=== PATIENT | female | born 1990 | race Caucasian/White ===

== ENCOUNTER 2017-07-14 20:44 | Inpatient (IN) | payer OTHER ==
[~2017-07-14] VITALS: Ht 167.6 cm; Wt 73.5 kg
[~2017-07-14 20:44] MED LIST: CIPROFLOXACIN500 MG PO; MIRENA1 EACH IY; NICORETTE4 M1 BUCCAL; PRENATAL 19 TA1 EAC1 PO
--- NOTE | 2017-07-15 00:15 | NUR ---
PT ROOM 115 AT THIS TIME. DROWSY, BUT RESPONDS TO NAME AND ANSWERS QUESTIONS APPROPRIATLY.
--- NOTE | 2017-07-15 01:00 | NUR ---
PT GIVEN TYLENOL 650MG PO WITH SIP OF WATER PER MD, AND TORDOL 30MG I.V. FOR TEMP 100.4, PT REPORTS SHE IS FREEZING. AFTER CALLING AND OBTAINING ORDERS. ALSO UPDATED MD OF TEMP AND PULSE 122 AT THIS TIME.
--- NOTE | 2017-07-15 02:18 | NUR ---
VITALS DONE AND CHARTED. NOTIFIED HER RN MANISH OF HIGH PULSE AND TEMP. BEDSIDE TABLE AND CALL LIGHT WITHIN REACH.
--- NOTE | 2017-07-15 03:10 | NUR ---
V/S IMPROVING AT THIS TIME. MONITORING CLOSLY FOR CONCERNS. DISCUSSED CONCERNS WITH MONE IN ED, WITH CHARGE NURSE LICHA AND KINGS IN CCU. CONCERNS OF PT TEMP AND LOW B/P WITH TACHYCARDIA.
--- NOTE | 2017-07-15 04:37 | NUR ---
PT RESTING QUIELTY IN BED EYES CLOSED RR EVEN AT 16 BPM. PT ALERT TO NAME. V/S TAKEN WILL NOTIFY MD OF LOW B/P AND UPDATE ON PT.
--- NOTE | 2017-07-15 04:51 | NUR ---
PT ADMITTED AT 0015 THIS AM. SHE ARRIVED TO ROOM 115 WITH TEMP OF 100.4. CALLED MD IN REGARDS TO ALL V/S AND PT CONDITION, NEW ORDERS GIVEN. SHE HAS NOT VOIDED SINCE ADMISSION WILLNOTIFY MD. PT REPORTS FEELING BETTER THIS AM, TEMP NOW 98.5 AFTER TORDOL AND TYLENOL ADMINSTERED. SHE HAS SLEPT WELL OVER SHIFT. FRIEND IN ROOM SLEEPING ON COUCH.
--- NOTE | 2017-07-15 05:00 | NUR ---
CALLED TO UPDATE ON PT, SHE HAS LOW B/P, TACHYCARDIC, NO URINE OUT AND DID NOT HAVE LACTIC OR BLOOD CULTURES DRAWN IN ED. ORDERS FOR 1L BOLUS LR TO BE ADMINISTERED OVER 2 HOURS, LABS TO BE DRAWN FOR BLOOD CULTURES AND LACTIC ACID THIS AM. NO OTHER ORDERS AT THIS TIME.
--- NOTE | 2017-07-15 06:02 | NUR ---
ROUNDED WITH IN PT ROOM. DISCUSSED PLAN OF CARE AND PLAN OF SURGERY LATER TODAY.
--- NOTE | 2017-07-15 06:40 | NUR ---
LAB IN DRAWING BLOOD CULTURES. PT STATED DR DEL VALLE WENT OVER THE CONSENT FOR SURGERY, CONSENTS TO BLOOD/PRODUCTS IF NECESSARY, SIGNED CONSENT FORM. PT EDUCATION GIVEN RELATED TO THE I/D PROCEDURE. FRIEND AT BEDSIDE.
--- NOTE | 2017-07-15 08:00 | NUR ---
TWO DIFFERENT ATTEMPTS MADE TO PLACE A VASQUEZ CATH IN PT, NOT SUCESSFUL DUE TO PT ANATOMY. THREE RN'S WORKING TOGETHER TO ATTEMPT TO PLACE VASQUEZ.
--- NOTE | 2017-07-15 08:25 | NUR ---
22 G IV STARTED IN LAC, PT TAMMY WELL. IV SITE IN RT AC INTACT, FLUIDS INFUSING EAISILY, NO REDENSS OR SWELLING NOTED.
--- NOTE | 2017-07-15 09:14 | NUR ---
urine sample sent to lab. macy wipe down complete, new linens and gown in place, pt able to void on bedside commode.
--- NOTE | 2017-07-15 09:43 | NUR ---
CALLED TO UPDATE ON PT ABILITY TO VOID AT BSC OF 300 ML. ONE ADDITIONAL L NS BOLUS ORDERED.
--- NOTE | 2017-07-15 10:24 | NUR ---
PT TROPONIN ELEVATED TO .019, MD NOTIFIED.
--- NOTE | 2017-07-15 10:47 | NUR ---
PT RESTING IN BED, APPEARS ASLEEP. PLACED SEDS ON PT. NO FOOD OR DRINK IN ROOM PT IS NPO, ALTHOUGH PT HAS BEEN COUNSELED SHE IS NOT TO HAVE FOOD OR DRINK PRIOR TO SURGERY. [phone] FRIEND IN DURING COUNSELING. 0900 CHECKED ON PT AND FOUND HALF A BREAKFAST SANDWICH IN UNDER PT BLANKETS IN BED. REINFORMED PT SHE IS NPO AND REASONS FOR NPO. PT STATES, "CAN I HAVE WATER?" EDUCATED PT NO WATER, ICE CHIPS, FOOD PRIOR TO SURGERY. WILL CONTINUE TO CLOSELY MONITOR PT. CALL LIGHT WITHIN REACH.
--- NOTE | 2017-07-15 12:20 | NUR ---
CALLED TO UPDATE ON PT STATUS, BP, HR, AND URINE OUTPUT. ORDER GIVEN FOR 1L BOLUS NS.
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
--- NOTE | 2017-07-15 14:01 | NUR ---
RED AREA OUTLINED WITH MARKER ON LEFT BUTTOCK.
--- NOTE | 2017-07-15 14:49 | NUR ---
PT ASLEEP, TOMAS SHEIKH SUGGESTED I LET HER SLEEP. WILL CALL BACK
--- NOTE | 2017-07-15 15:42 | NUR ---
CALLED TO UPDATE ON PT STATUS CONTINUIOUS ELEVATED HR, AND LOW URINE OUTPUT. ORDER GIVEN FOR MAG AND BMP LABS.
--- NOTE | 2017-07-15 15:50 | NUR ---
PT UP TO BEDSIDE COMMODE ABLE TO VOID 200 ML URINE.
--- NOTE | 2017-07-15 17:05 | NUR ---
PT LEFT THE CCU WITH THE OR NURSES AND STUDENT NURSE FOR SURGICAL PROCEDURE.
--- NOTE | 2017-07-15 18:30 | NUR ---
07/15/17 1830 Rita Fitzgerald OXYGEN SATURATION REMAINS 100% ON 6L VIA MASK. OXYGEN IS REMOVED @ THIS TIME.
--- NOTE | 2017-07-15 18:36 | CONS ---
[facility] [address], [place] [address] Signed DATE OF CONSULTATION: 07/15/2017 HISTORY OF PRESENT ILLNESS: Maxi is a 26-year-old female who is living with some roommates here in [place], [place]. 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 She has also been engaged in methamphetamines. For the last 3 days, she has developed pain and swelling on the left side of her anus, so she came to the emergency room for evaluation. On exam, she has a left perianal abscess, so I have asked to admit her as a general surgeon on-call. She was given Levaquin, Flagyl, IV fluids and pain control overnight. This morning, overall she seems to be feeling better. PAST MEDICAL HISTORY: Clavicular fracture. PAST SURGICAL HISTORY: Laparoscopic appendectomy. SOCIAL HISTORY: She smokes pack of cigarettes a day. She does not drink. She does use methamphetamines. 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 No job. She has no primary care provider. Her mother, Alpesh Lacy, is at [phone] in [place], [place]. She prefers [facility]. FAMILY HISTORY: Mom with diabetes. Dad has hypertension. REVIEW OF SYSTEMS: Maxi had 10 systems reviewed, seems to be very healthy otherwise. ALLERGIES: None. MEDICATIONS: None. PHYSICAL EXAMINATION: VITAL SIGNS: Her blood pressure is 95/56, heart rate 109, respiratory rate 16, and temperature is 98.2. She is 98% on room air. She is 5 feet 6 inches, at 70 kg. GENERAL: Maxi is a 26-year-old female who is lying in the right lateral decubitus position in her hospital bed. Her friend is in the room on the couch. We have Ms. Pierce with us. Maxi is alert, awake and interactive. Apparently, she looks and feels Electronically Signed By: JOSH DEL VALLE MD 07/15/17 1836 PATIENT NAME: MAXI LACY CONSULTATION DATE OF : 89 REPORT #: [id number] PHYSICIAN: JOSH DEL VALLE MD PCP: NO PRIMARY CARE PHYSICIAN REPORT IS CONFIDENTIAL AND NOT TO BE RELEASED WITHOUT AUTHORIZATION [facility] [address], [place] [address] Signed better this morning. LUNGS: Clear to auscultation bilaterally. HEART: Borderline tachycardic. ABDOMEN: Soft and nontender. She has some swelling left anterior with some erythema and tenderness. LABORATORY DATA: Her white blood cell count is 20,000, hemoglobin is 12 was 18, potassium 3.2, BUN 10, creatinine 0.5, AST 23, ALT 55, alkaline phosphatase 131, and albumin 3.6. Urinalysis shows some bacteria. Blood work also showed she was positive for methamphetamines and Ecstasy. Blood cultures are pending. ASSESSMENT AND PLAN: Maxi is a 26-year-old female who presents with a left perianal abscess. She has been admitted and given IV fluids, antibiotics and pain control. We will plan to take her to the OR later today for incision and drainage. I reviewed all this with Maxi in detail. She has expressed understanding and agrees about plan. MD DAMON Collier/MEGHANNL /[id number] cc: Josh Del Valle MD Copies: JOSH DEL VALLE MD ~ Electronically Signed By: JOSH DEL VALLE MD 07/15/17 1836 PATIENT NAME: ZEESHANMAXI WILL CONSULTATION DATE OF : 89 REPORT #: [id number] PHYSICIAN: JOSH DEL VALLE MD PCP: NO PRIMARY CARE PHYSICIAN REPORT IS CONFIDENTIAL AND NOT TO BE RELEASED WITHOUT AUTHORIZATION
--- NOTE | 2017-07-15 19:00 | NUR ---
RECEIVED REPORT AT 1900. PT JUST ARRIVED FROM PACU WITH LOW SBP'S IN THE MID 80'S. DAY RN CALLED MD SIMMS AND RECEIVED AN ORDER FOR LEVOPHED IV. A NEW IV SITE WILL BE STARTED. PT IS NOT REALLY RESPONSIVE TO VERBAL COMMANDS. PT IS VERY DRWOSY.
--- NOTE | 2017-07-15 19:18 | NUR ---
PT BACK TO RM FROM OR. RECEIVED FULL REPORT FROM ELLIE. BEDSIDE REPORT GIVEN TO [facility] NURSES.
--- NOTE | 2017-07-15 20:20 | NUR ---
NEW IV SITE ESTABLISHED. LEVOPHED INITIALLY STARTED AT 4MCG/MIN. PRESSURES ARE IMPROVING. ALL LOBES ARE DIMINISHED, PT HAS GENERALIZED EDEMA. CAP REFILL ON BOTH HANDS AND TOES IS <3 SEC. URINE OUTPUT FROM [id number] WAS 60ML. RADIAL AND PEDIS PULSES ARE +2 SO FAR. HANDS ARE COOL TO TOUCH.
--- NOTE | 2017-07-15 21:00 | NUR ---
LEVOPHED DRIP STOPPED AT 2039 DUE TO MEETING EMAR CRITERIA. SBP'S NOW >100. PT OPENED HER EYES TO VERBAL COMMAND BUT STATED THAT SHE IS TIRED. RADIAL AND PEDIS PULSES ARE +2, HANDS ARE STILL COOL TO TOUCH. URINE OUTPUT FROM [id number] WAS 100ML. HR IS SINUS TACHY 100-118. PT IS STILL ON 2L O2 NC.
--- NOTE | 2017-07-15 23:05 | NUR ---
PT IS STILL VERY SLEEPY, TEMP AT THIS TIME IS 100.3. URINE OUTPUT IS ADEQUATE, BP'S ARE SOFT BUT SBP HAS BEEN STAYING >90. MAP AT THIS TIME IS 64. TACHY STILL AT 100-110. PT ON 2L O2 NC. GENERALIZED EDEMA IS UNCHANGED SO FAR.
--- NOTE | 2017-07-15 23:33 | NUR ---
PT FOR THE PAST 15MIN HAS BEEN AWAKE. ABD PAD WAS REPLACED DUE TO DRAINAGE. PT IS NOW EATING JELLO AND IS ON HER PHONE. LAST BP AT 2330 WAS 88/57 (64), LEVOPHET AT 4MCG/MIN WAS STARTED AGAIN. PT ALSO HAD SOME WATER TO DRINK.
--- NOTE | 2017-07-16 00:07 | NUR ---
LEVOPHET IS GOING AT 3MCG/MIN AT THIS TIME. URINE OUTPUT IS STILL ADEQUATE, BP'S ARE IMPROVING AGAIN. PT LOST IV SITE IN RIGHT HAND. ALL LOBES ARE CLEAR WITH DIMINISHED BASES, RADIAL AND PEDIS PULSES ARE +1, HANDS AND FEET ARE WARM TO TOUCH. PT DENIES NUMBNESS AND TINGLING. HR AT 100-110, ABD SOUND ARE STILL HPYOACTIVE. ABD IS SOFT AND NON-TENDER TO TOUCH. PT TRIED TO GET VISITORS TONIGHT. I TOLD HER NO VISITOR TONIGHT. PT AT TIMES IS AWAKE AND AT TIMES FALLS BACK ASLEEP. NO NEW CONCERNS AT THIS TIME.
--- NOTE | 2017-07-16 01:49 | NUR ---
AT 0103 TEMP WAS 102.9, IV TORADOL 30MG WAS GIVEN. AT 0145 TEMP WAS 100.2. I DID NOT CALL MD SIMMS BECAUSE I WANTED TO SEE HOW MUCH AND IF HER TEMP WOULD DROP WITH TORADOL. HANDS AND FEET ARE WARM TO TOUCH. HR IS 110 OR SO. RR 23. O2 SATS 100% ON 2L O2 NC. PT IS SLEEPY AGAIN AND NOT EASY TO AROUSE.
--- NOTE | 2017-07-16 03:05 | NUR ---
VANCOMYCIN WAS STARTED AT 0300. PT REMAINS AT 4MCG/MIN OF LEVOPHET. RADIAL AND PEDIS PULSES ARE +2 AT THIS TIME WITH HANDS AND FEET WARM TO TOUCH. BP'S ARE WDL AT THIS TIME. PT IS SLEEPING AND STILL HARD TO AROUSE. THIS MAY BE DUE TO THE METH LEAVING HER SYSTEM. TEMP AT THIS TIME IS 99.1
--- NOTE | 2017-07-16 03:35 | NUR ---
AT O330 OXYGEN WAS TITRATED TO 1L NC. AT THIS TIME PT IS ON RA. OS SATS AT 96%. RR 15.
--- NOTE | 2017-07-16 05:00 | NUR ---
PT IS STILL VERY MUCH ASLEEP. LEVOPHET IS AT 3MCG/MIN, SBP SO FAR >100. HR IS 90-110. PT IS STILL ON RA AND O2 SATS ARE >92%. URINE OUTPUT IS ADEQUATE. HANDS AND FEET ARE WARM TO TOUCH WITH RADIAL AND PEDIS PULSES +2. NO NEW CONCERNS AT THIS TIME.
--- NOTE | 2017-07-16 06:15 | OR ---
[facility] [address], [place] [address] Signed DATE OF OPERATION: 07/15/2017 SURGEON: Josh Del Valle MD PREOPERATIVE DIAGNOSIS: Left perirectal abscess. POSTOPERATIVE DIAGNOSIS: Left perirectal abscess. PROCEDURES: Incision and drainage, left perirectal abscess. ESTIMATED BLOOD LOSS: None. INDICATIONS: Maxi is a 26-year-old female, who apparently lives alone with some roommates. 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 She came into our emergency room with at least 3-day history of redness and swelling on the left buttock area just to the side of the anus. She tested positive for methamphetamines and Ecstasy. I had been asked to admit her as a general surgeon on-call. She also had 4+ bacteria in the urine. She was placed on Levaquin and Flagyl and hydrated overnight. I had met her earlier this morning and we had planned on doing her surgery. Later that morning, when I left the room after the nurse talked to her about n.p.o. status, she ate most of a sandwich, so we had to wait until later today. In the meantime, we did have our Internal Medicine Service see her and they decided because of her tachycardia and her hypotension to move her down to the ICU. It is hard to know if that was all sepsis or there was some component of methamphetamine withdrawal. Consequently, she did get some Ativan today as well along with IV fluids for urine output. I had explained to Maxi and her friend the concept of a perirectal abscess and the need to incise and drain that area and evacuate the pus and allowed to heal in secondarily. We also discussed the concept of a [id number] at least 50% of the time. They had expressed understanding wished to proceed. PROCEDURE NOTE: Maxi was taken into our operating room and placed in the prone monico-knife position with appropriate padding and monitoring. She had a Skaggs catheter in place with return of clear yellow urine. She was already on preoperative antibiotics along with subcutaneous heparin. SCDs were utilized. After this, she was prepped and draped in Electronically Signed By: JOSH DEL VALLE MD 07/16/17 0615 PATIENT NAME: MAXI BYERS OPERATIVE REPORT DATE OF : 89 REPORT #: [id number] PHYSICIAN: JOSH DEL VALLE MD PCP: NO PRIMARY CARE PHYSICIAN REPORT IS CONFIDENTIAL AND NOT TO BE RELEASED WITHOUT AUTHORIZATION [facility] [address], [place] [address] Signed the usual sterile fashion. With digital exam, I could feel the abscess traveling along the left side of the rectum and somewhat posteriorly. We used a half-nicholas retractor and we had pushed on the area and we could not see any fistula tract or pus coming in the posterior or anterior midline. After this, we found the area of what we felt was maximal fluctuance at about the 7 o'clock position next to the anus had being the left lateral somewhat anterior position. Initial stab wound was made with the cautery and copious amounts of pus was evacuated. Cultures were taken. After this, we converted to a cruciate incision and we spent quite a few minutes irrigating and suctioned out the wound. The wound traveled up along the rectum and somewhat posteriorly over to the midline, but not across the midline. The wound was probably 6-8 inches deep posteriorly, 3-4 inches laterally and anteriorly. All the loculations were broken up and all the debris in the loose fat was evacuated with the help of warm antibiotic saline solution. Local anesthetic was copiously injected circumferentially in the skin and subcutaneous tissues around the wound. We then packed the wound with 4-inch Kerlix gauze roll soaked in Dakin's solution. This was covered with a dry ABD and underwear. After this, Maxi was rotated into the supine position onto her hospital bed weaned from her anesthesia, extubated in the OR, and taken to recovery room in stable condition. Josh Del Valle MD ALB/MODL /[id number] cc: Josh Del Valle MD Copies: JOSH DEL VALLE MD ~ Electronically Signed By: JOSH DEL VALLE MD 07/16/17 0615 PATIENT NAME: MAXI BYERS OPERATIVE REPORT DATE OF : 89 REPORT #: [id number] PHYSICIAN: JOSH DEL VALLE MD PCP: NO PRIMARY CARE PHYSICIAN REPORT IS CONFIDENTIAL AND NOT TO BE RELEASED WITHOUT AUTHORIZATION
--- NOTE | 2017-07-16 06:24 | NUR ---
PT ARRIVED ON UNIT AT 1900 WITH LOW BP'S. LEVOPHET ORDER WAS GIVEN BY MD SIMMS. AT 2039 LEVOPHET WAS D/C DUE TO GOOD PRESSURES AND MAP. AT AROUND 0100 PT SPIKED A FEVER OF 102.9, PRN TORADOL 30MG IV WAS GIVEN. MD SIMMS WAS NOT CALLED BECAUSE I WANTED TO SEE WHAT THE TORADOL WOULD DO. HER TEMP KEPT DECLINING UNTIL SHE WAS AFEBRILE. AROUND THE SAME TIME PT BECAME FEBRILE, HER BP'S WENT <90 SYSTOLICALLY AND PT HAD TO BE PUT BACK ON LEVOPHET AND HAS REMAINED ON IT SINCE. AT THIS TIME IT IS RUNNING AT 2MCG/MIN AT THIS TIME. URINE OUTPUT HAS BEEN ADEQUATE ALL SHIFT. AT 0600 IT WAS 75ML FOR 1 HOUR AND IT HAS BECOME MORE DARKER IN COLOR. THIS WAS THE LOWEST HOURLY OUTPUT THIS SHIFT. ABD PAD HAD TO BE REINFORCED ONE THIS SHIFT. PT HAD A MODERATE AMOUNT OF SEROUSANG. DRAINAGE. PT IS DRY AT THIS TIME. PT HAS GENERALIZED EDEMA AT THIS TIME APPROACHING +2 BUT NON-PITTING. AT START OF SHIFT IT WAS +1. RADIAL AND PEDIS PULSES ARE AT TIMES +1 AND +2 AT OTHER TIMES. HANDS AND FEET ARE WARM TO TOUCH FOR THE MOST PART. AT TIMES THEY WERE COOL. CAP REFILL HOWEVER HAS ALWAYS BEEN <3 SEC. ALL SHIFT. ABD SOUNDS AT THIS TIME ARE PRESENT. PT IS TOLERATING LIQUID DIET WELL. PT HAS REMAINED DROWSY/SLEEPY FOR THE MOST PART OF THIS SHIFT. PT IS NOT ABLE TO HOLD A CONVERSATION OR ANSWER QUESTIONS FOR THE MOST PART. PT MAY NEED PICC LINE SINCE HER VENOUS ACCESS IS LIMITED. ONE IV SITE WAS LOST THIS SHIFT.
--- NOTE | 2017-07-16 07:20 | EKG ---
[facility] [address] [facility] [place], [place] [address] Signed Sinus tachycardia Otherwise normal ECG When compared with ECG of 04-JUN-2016 09:18, No significant change was found Confirmed by RAYSA DIETZ MD ([id number]) on 07/16/2017 7:19:45 AM Electronically Signed By: RAYSA DIETZ MD 07/16/17 0720 PATIENT NAME: ZEESHANCLAYTON Electrocardiogram DATE OF : 89 PHYSICIAN: RAYSA DIETZ MD REPORT #: [id number] REPORT IS CONFIDENTIAL AND NOT TO BE RELEASED WITHOUT AUTHORIZATION
--- NOTE | 2017-07-16 07:33 | NUR ---
levophed drip off at this time.
--- NOTE | 2017-07-16 08:00 | NUR ---
PT SLEEPING. WILL CHECK LATER.
--- NOTE | 2017-07-16 10:03 | NUR ---
PT GIVEN FULL BED BATH, LINEN CHANGE, AND GOWN CHANGED. VASQUEZ CATH CARE DONE. DRESSING ON LEFT BUTTOCK CHANGED, OLD GAUZ PACKING PULLED OUT, NEW KERLEX GAUZE SOAKED IN FULL STRENGTH DAKINS SOLUTION PACKED INTO WOUND, COVERED WITH ABD PAD, CLEAN UNDERWEAR PLACED. PT ABLE TO ROLL FROM SIDE TO SIDE TO ASSIST WITH BED CHANGE. PT TEARFUL DURING DRESSING CHANGE. WOUND APPEARS WNL.
--- NOTE | 2017-07-16 11:15 | NUR ---
PT SLEEPING. SPOKE WITH NURSING STAFF. THEY STATE PATIENT IS SLEEPING MOSTLY. DOESN'T SPEAK MUCH WHEN AWAKE. STATE SHE LIVES IN APARTMENT WITH FRIENDS. HAS NO CONTACT WITH FAMILY AT THIS TIME. SHE IS UNEMPLOYED. THEY WILL LET CASE MANAGEMENT KNOW WHEN SHE IS MORE ALERT FOR ASSESSMENT.
--- NOTE | 2017-07-16 13:16 | NUR ---
PT SEEMS TO BE VERY DROWSY. WAS TRYING TO TALK ON PHONE, AND FADED IN AND OUT I ENTERED. PT STATED SHE IS THIRSTY, AND WOULD REALLY LIKE TO SLEEP. EXTENDED A BLESSING, ASKED IF SHE COULD HAVE VISITORS YET. I CHECKED WITH TOMAS BAILEY, SHE STATED SHE WILL CHECK. PT'S PREVIOUS VISITORS HAVE NOT COMPLIED WITH UNIT RULES, CREATING ISSUES. WILL FOLLOW NEEDED
--- NOTE | 2017-07-16 14:20 | NUR ---
PT RESTING IN BED. PROMPTED PT TO AMBULATE AND USE RESTROOM TO BRUSH TEETH. PT TO CHAIR AND STATES SHE FEELS "NAUSEOUS". ALSO ASKS "WHY CANT I HAVE MY FRIENDS COME VISIT?" KORI MARIN EXPLAINED TO PT "DUE TO THE FACT THAT YOU TESTED POSITIVE FOR METHAMPHETAMINE, AMPHETAMINES, AND ECSTACY; THEREFORE WE ARE CONCERNED FOR YOUR SAFETY." PT TEARFUL STATES "I CANT BE HERE ALL ALONE. MY FRIENDS ARE MY FAMILY, MY FAMILY DOESNT CARE ABOUT ME." REITERATED TO PT IT WAS THE DR'S CHOICE TO HAVE VISITORS RESTRICTED. PT ASKED TO SPEAK WITH
--- NOTE | 2017-07-16 14:34 | NUR ---
IN ROOM TO DISCUSS PLAN OF CARE WITH PT. PT DID NOT DISCUSS TOPIC OF HAVING VISITIORS IN HER ROOM WITH .
--- NOTE | 2017-07-16 15:58 | NUR ---
pt is reclining in chair at this time, vitals wnl. pt has been able to eat most of her lunch, elsa reg diet well. pt elsa room air well.
--- NOTE | 2017-07-16 18:25 | NUR ---
PT RESTING IN CHAIR, AMBULATED BACK TO BED. PT IN TEARS ASKING AGAIN IF SHE CAN HAVE VISITORS. WHEN TOLD "NOT AT THIS TIME" PT BECAME MORE UPSET. PT CONTINUED TO ARGUE, NURSE REITERATED IT IS NOT AN OPTION AT THIS TIME AND OFFERED TO CALL PARENTS, BUT PT DECLINED INSTEAD REQUESTING VANNESA RN TO COME SPEAK WITH HER. VANNESA CAME INTO RM AND WAS ABLE TO COMMUNICATE THE SAME MESSAGE. AFTER DISCUSSION PT DECIDED TO HAVE KORI CONTACT HER FATHER.
--- NOTE | 2017-07-16 19:01 | NUR ---
THIS RN HAS REVIEWED OR CHARTED WITH ALL STUDENT NURSE CHARTING FOR THIS SHIFT.
--- NOTE | 2017-07-16 19:30 | NUR ---
PT IN BED RESTING WITH EYES CLOSED, AWAKENS BRIEFLY FOR IV PUMP ALARM AND DENIES NEEDS THEN BACK TO SLEEP.
--- NOTE | 2017-07-16 20:30 | NUR ---
FATHER ALIN IN TO SEE PT AND SIT AT BEDSIDE. NO REQUESTS AT THIS TIME.
--- NOTE | 2017-07-16 21:00 | NUR ---
PT C/O NAUSEA AFTER WAKING UP. 8MG IV ZOFRAN GIVEN. PT VERY SLEEPY, TALKING TO THIS RN AND FATHER WITH EYES CLOSED.
--- NOTE | 2017-07-16 22:30 | NUR ---
FATHER LEAVING FOR THE NIGHT, PT IS BACK TO SLEEP.
--- NOTE | 2017-07-17 00:19 | NUR ---
DRESSING CHANGE DONE, OLD PACKING REMOVED SATURATED WITH SMALL AMT PURULENT AND SEROSANG DISCHARGE, NEW PACKING PLACED GAUZE SATURATED IN DAKINS SOLUTION, PT WAS TEARFUL THROUGH DRESSING CHANGE, ALTHOUGH PREMEDICATED WITH DILAUDID AND NORCO. URINE OUTPUT FOR THE LAST HOUR HAS DROPPED TO 36ML, WILL CONTINUE TO MONITOR. LAST BP MAP 73. PT QUICKLY BACK TO SLEEP AFTER DRESSING CHANGE DONE.
--- NOTE | 2017-07-17 02:22 | NUR ---
PT REMAINS ASLEEP. O2 ON. RESPIRATORY RATE EVEN AND UNLABORED. NO S/S OF DISTRESS.
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
--- NOTE | 2017-07-17 04:07 | NUR ---
PT WOKE UP VOMITING, HAD 100ML EMESIS. 12.5MG IV PHENERGAN GIVEN AND PT QUICKLY BACK TO SLEEP.
--- NOTE | 2017-07-17 06:09 | NUR ---
LAB IN TO DRAW BLOOD. UNSUCCESSFUL. WARMING PT ARMS WITH BLANKETS TO RETURN LATER. ASKED PT IF SHE WOULD LIKE ANY PAIN MEDICATION, PO. PT REFUSED AT THIS TIME. HAS PRIMARILY BEEN SLEEPING.
--- NOTE | 2017-07-17 06:33 | NUR ---
PT O2 OFF. PLACED BACK ON. SPO2 87% ON RA. INCREASED TO 95% ON 2L NC.
--- NOTE | 2017-07-17 08:40 | NUR ---
TAKING ONLY FLUIDS, REFUSING FUTHER BREAKFAST.
--- NOTE | 2017-07-17 09:00 | NUR ---
C/O SARAVIA 12/29. NORCO 2 GIVEN FOR PAIN.
--- NOTE | 2017-07-17 09:30 | NUR ---
DRESSING TO LEFT BUTTOCKS REDRESSED. DR. ORTIZ AND DR. DEL VALLE HERE. DRESSING REAPPLIED PER ORDERS. PATIENT TOLERATED FAIR.
--- NOTE | 2017-07-17 11:41 | NUR ---
REMAINS DROWSY. NEEDS MUCH ENC TO BE INVOLVED IN HEALTH CARE. ON RA SAT 78. O2 AT 2 LITERS REAPPLIED. WILL ONLY SHAKE HEAD IN RESPONSE TO QUESTIONS, EYES SHUT. PEDRO GARNER.
--- NOTE | 2017-07-17 12:40 | NUR ---
C/O NAUSEA AFTER TAKING FEW BITES OF FRUIT/JELLO. ZOFRAN 8 MG IV GIVEN.
--- NOTE | 2017-07-17 14:00 | NUR ---
TO SHOWER IN ROOM 118. IS STABLE ON FEET.
--- NOTE | 2017-07-17 14:20 | NUR ---
RETURN TO ROOM, WISHES TO GO BACK TO BED STATES SHE CAN'T SIT ON LEFT BUTTOCKS. HAD 50 ML EMESIS OF RED JELLO. HEMATES NEG.
--- NOTE | 2017-07-17 16:30 | NUR ---
dr. summers updated on patient STATUS. WILL TRANSFER TO MEDICAL FLOOR THIS AFTERNOON.
--- NOTE | 2017-07-17 16:45 | NUR ---
REPORT TM MED-SURG.
--- NOTE | 2017-07-17 17:15 | NUR ---
LASIX 20 MG IV AND KCL 20 MEQ PO GIVEN.
--- NOTE | 2017-07-17 17:20 | NUR ---
TO MEDICAL FLOOR VIA BED. REMAINS ON O2 AT 1 LITHE. ENC THROUGH THE DAY TO DEEP BREATH.
--- NOTE | 2017-07-17 18:02 | NUR ---
PT RECEIVED FROM CCU. PT ON 1L NC, LUNG SOUNDS CLEAR. PT SLEEPY, AROUSABLE TO VOICE. IV FLUIDS INFUSING AT 50 ML/HR. BOWEL TONES ACTIVE, DENIES NAUSEA, POOR APPETITE. PT COMPLAINT OF HEADAHCE, GIVEN IV KETORALAC FOR PAIN. IV TO RIGHT AC INFILTRATED, LEFT AC PATENT NOW INFUSING. PT ASSISTED TO BATHROOM X2, VOIDING LARGE AMOUNTS OF URINE. BED ALARM IN PLACE.
--- NOTE | 2017-07-17 19:20 | NUR ---
BEDSIDE REPORT RECEIVED FROM JSOE. ASSUMING PATIENT CARE AT THIS TIME. PATIENT RESTING IN BED, APPEARED TO BE SLEEPING AT TIME OF REPORT. SHOOK HEAD TO ANSWER QUESTION. IV SITE PATENT AND FLUID INFUSING WELL. WILL CONTINUE TO MONITOR.
--- NOTE | 2017-07-17 21:35 | NUR ---
PATIENT RESTING IN BED, DENIES PAIN AT THIS TIME. PATIENT APPEARS TO BE SLEEPY , BUT ANSWERED ALL QUESTIONS APPROPRIATELY. IV SITE PATENT AND FLUID INFUSING WELL.DRESSING ON LEFT BUTTUCKS IN PLACE. POSITIVE BOWEL TONES. LUNGS ARE CLEAR. EVENING MED GIVEN AND ABX STARTED. PATIENT RESTING, NO OTHER COMPLAINT AT THIS TIME.
--- NOTE | 2017-07-17 23:00 | NUR ---
DRESSING TO LEFT LOWER BUTTOCKS DONE BY PRIMARY RN. LAC IV SITE VERY POSITIONAL. PT DECLINED SEVERAL TIMES TO HAVE IV RESTARTED. "JUST LET ME SLEEP", "I DO NOT WANT TO BE POKED AGAIN", PT INSTRUCTED BY PRIMARY RN ALEXIA MARIN OF [facility] WHY WE NEEDED TO HAVE A SECOND/ANOTHER IV SITE. CONTINUES TO DECLINE . WILL ASK PT AGAIN LATER ON THIS SHIFT ABOUT RESTARTING ANOTHER IV LINE.
--- NOTE | 2017-07-18 00:19 | NUR ---
PATIENT RESTING IN BED AT THIS TIME, APPEARS TO BE SLEEPING. NO APPARENT DISTRESS NOTED. RR EVEN/UNLABORED. DRESSING ON LEFT BUTTUCK CHANGED EARLIER. PATIENT REPORTED 10/10 PAIN. OFFERED PATIENT KERI PATIENT REFUSED DUE TO NAUSEA, ALSO REFUSED ANTIEMETIC FOR NAUSEA. PATIENT REQUESTED TO BE LEFT ALONE. IV ABX STARTED. COOL COMPRESS TO FOREHEAD.
--- NOTE | 2017-07-18 00:50 | NUR ---
IN TO ROOM TO CHECK ON PATIENT. PATIENT REQUESTED WARM BLANKET. WARM BLANKET PROVIDED. NO OTHER REQUEST
--- NOTE | 2017-07-18 02:50 | NUR ---
UP TO BRP WITH 1 PA, VOIDED DARK YELLOW URINE, BACK TO BED, TOLERATED WELL. EXTRA PILLOW GIVEN ON REQUEST.
--- NOTE | 2017-07-18 03:30 | NUR ---
PATIENT WAS UP TO BATHROOM WITH THE HELP OF THE CHARGE NURSE. BACK TO BED. SECOND ASSESSMENT DONE. PATIENT REPORTES SORENESS ON THE LEFT BUTTOCK AREA. WARM BLANKET AND EXTRA PILLOW GIVEN PER PATIENT REQUEST. ALLOW PATIENT TO REST.
--- NOTE | 2017-07-18 04:54 | NUR ---
PATIENT RESTING IN BED, NO APPARENT DISTRESS. ALLOWED PATIENT TO REST
--- NOTE | 2017-07-18 05:56 | NUR ---
PATIENT AN UNEVENTFUL NIGHT, SLEPT MOST OF THE SHIFT. DRESSING ON THE LEFT BUTTUCK WAS CHANGED. PATIENT REFUSED TO PAIN MED LAST NIGHT AFTER DRESSING CHANGE. IV SITE PATENT , ABX INFUSING.FLAT AFFECT. HAS BEEN UP TO BATHROOM A COUPLE OF TIME DURING THE SHIFT. ARMS AND HANDS ARE SWELLEN. PATIENT REFUSED NEW IV INSERTION.
--- NOTE | 2017-07-18 06:06 | NUR ---
IN TO PATIENT ROOM WITH CHARGE NURSE FOR MORNING VITALS. PATIENT REPORTS BEING TIRED. IV SITE PATENT AND IV ABX STARTED. DENIES NAUSEA AT THIS TIME.
--- NOTE | 2017-07-18 07:00 | NUR ---
BEDSIDE HANDOFF REPORT RECEIVED FROM FIBERGLASS TUBE MOLDER RN. PT SKEEPING, LEFT UNDISTURBED.
--- NOTE | 2017-07-18 08:30 | NUR ---
PT RESTING IN BED. IV VANCO INFUSION COMPLETED. IV FLAGYL INFUSING. PT DROWSY, UNMOTIVATED, REQUIRES FREQUENT REQUEST TO WAKE UP FOR ASSESSMENT, WAKES EASILY FOR JELLO OR PERSONAL REQUESTS. PT ON ROOM AIR, LUNG SOUNDS CLEAR. BOWEL TONES ACTIVE, POOR APPETITE, ENCOURAGED TO ORDER BREAKFAST. EDEMA IMPROVING, CMS INTACT. DISCUSSED PLAN OF CARE FOR THE DAY. PT PROVIDED PAIN MEDICATION, PROPHYLAXIS FOR DRESSING CHANGE. PT DENIES OTHER NEEDS AT THIS TIME.
--- NOTE | 2017-07-18 09:55 | NUR ---
PT SALINE LOCKED. GAS APPLIANCE MECHANIC ASSISTING PT WITH SHOWER.
--- NOTE | 2017-07-18 10:30 | NUR ---
PT COMPLETED WITH SHOWER. DRESSING CHANGE COMPLETED TO LEFT BUTTOCK WOUND, WASHED WITH SOAP WATER, PACKED WITH GAUZE ROLL WITH DAKINS SOLUTION, SECURED WITH ABD AND TAPE, UNDERWEAR IN PLACE. PT TOLERATED WITH SOME PAIN. IV CEFEPIME INFUSING. PT GIVEN PO SEPTRA. PT RESTING IN BED. PT DENIES OTHER NEEDS AT THIS TIME.
--- NOTE | 2017-07-18 14:20 | NUR ---
PT RESTING IN BED. PT ON ROOM AIR, O2 SATS 91-92%, LUNG SOUNDS CLEAR. PT CONTINUES TO BE DROWSY, EASILY AROUSABLE. IV INFUSING ABX. VSS. EDEMA IMPROVING. NO ACUTE CHANGES. PT DENIES OTHER NEEDS AT THIS TIME.
--- NOTE | 2017-07-18 18:00 | NUR ---
IV VANCO DISCONTINUED, STARTED ON PO SEPTRA. PT ON ROOM AIR, LUNG SOUNDS CLEAR. IV TO LEFT AC PATENT, IV CEFEPIME AND FLAGYL. DRESSING CHANGE COMPLETED THIS AM AFTER SHOWER. PT CONTINUES TO BE DROWSY, REQUIRES FREQUENT EDEUCATION ON MOBILITY AND MOTIVATION. POOR APPETITE. VOIDING QS.
--- NOTE | 2017-07-18 18:27 | NUR ---
AFTER VITALS PATIENT GOT UP AND WENT INTO THE BATHROOM. NOW IS SITTING UP IN CHAIR.
--- NOTE | 2017-07-18 21:20 | NUR ---
2038 - medicated with one norco c/o 07/29 left buttovks pain. pt in bed, up to brp with one assist, voided, back to bed. IV s/s site LAC intact, patent. Dressing left buttocks intact. will change as per orders. area tender. Pt encouraged to walk up in room or get up in chair. Stated understanding, more awake. Continues on Contact Isolation. Pt states she does not know if she has anybody available to do her buttocks dressing changes when she gets dc. Will discuss with CM in am
--- NOTE | 2017-07-18 22:20 | NUR ---
Medicated with 2nd dose of [place] prior to Left buttock dressing change. Cooperative with dressing changes, area no odor, scant amount of clear drainage present on old dressing. Dressing changed as per orders.
--- NOTE | 2017-07-19 00:29 | NUR ---
Resting, awkens easily, up to brp with 1 sba, no c/o pain, Jelloo given at her requests
--- NOTE | 2017-07-19 04:25 | NUR ---
Resting, eyes closed, dressing left buttocks in place, no c/o pain or requests
--- NOTE | 2017-07-19 06:08 | NUR ---
awake, lab in room drawing blood. cooperative with procedure. sl. no c/o adverse reaction to abx. Pt instructed to increase fluid intake, has had poor appetite. no c/o feelings nauseated last night this shift. Was medicated per pain left buttocks, dressing to left buttocks done, decrease serous drainage, no odor present. decreased edema of right arm/hand and right foot/let+1, non pitting, Left hand-leg trace of edema, improving.
--- NOTE | 2017-07-19 06:55 | NUR ---
DR DEL VALLE IN ROOM TO SEE PT. DRESSING LEFT BUTTOCKS DC'D BY DR DEL VALLE. PT NO C/O PAIN AT THIS TIME
--- NOTE | 2017-07-19 08:36 | NUR ---
SET UP FOR BRK. CLEANED ROOM. WILL CHECK BACK ON LATER
[2017-07-19] MEDS ORDERED: FLAGYL500 MG PO (08:51)
[2017-07-19] MEDS ORDERED: BACTRIM DS TAB1 EACH PO (08:51)
[2017-07-19] MEDS ORDERED: NORCO 5-325 TA1 EACH PO (08:52)
--- NOTE | 2017-07-19 09:21 | NUR ---
GAVE DISCHARGE INSTRUCTIONS TO PT. PT VERBALIZED UNDERSTANDING. QUESTIONS ASKED AND ANSWERED. GAVE PT ABD PADS, CARLOS PADS, AND 4X4 GAUZE FOR HOME DRESSINGS. WOUND TO LEFT INNER BUTTOCK OPEN TO AIR, PLACED 4X4 GAUZE OVER WOUND. ONLY SMALL AMOUNT OF SEROUS DRAINAGE NOTED TO WOUND.
--- NOTE | 2017-07-19 10:14 | NUR ---
RN IN ROOM. VITALS AND I&Os DONE. CALL LIGHT WITHIN REACH. NO OTHER NEEDS AT THIS TIME.
--- NOTE | 2017-07-19 10:18 | NUR ---
JAMA AND I AND O DONE
--- NOTE | 2017-07-19 12:50 | NUR ---
PATIENT RESTING IN BED AND IS WAITING FOR FAMILY MEMBERS TO ARRIVE TO DISCHARGE.
--- NOTE | 2017-07-20 08:08 | DS ---
[facility] [address] [place], [place] [address] Signed ADMISSION DATE: 07/14/2017 DISCHARGE DATE: 07/19/2017 FINAL DIAGNOSES: 1. Left perirectal abscess with methicillin-resistant Staphylococcus aureus. 2. Urinary tract infection with Escherichia coli. 3. Methamphetamine abuse. PROCEDURE: Incision and drainage of left perirectal abscess. HISTORY OF PRESENT ILLNESS: Maxi is a 26-year-old female, who over 3 days, developed redness and swelling to the left of her anus. 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 In the ER, she proved positive for methamphetamines and ecstasy. Her mother apparently lives at [place], [place], which is an hour away. Her father lives locally and apparently does help her from time to time. In the emergency room, her blood pressures were run in a little low. She was a little tachycardic with the left perianal swelling and erythema and tenderness. White count was elevated at 22,000 and her urine showed +4 bacteria with positive meth and ecstasy on her tox screen. I have been asked to admit her as a general surgeon on-call. HOSPITAL COURSE: Maxi was admitted as above and started on Levaquin and Flagyl. We took her to the operating room later that day for incision and drainage of her left perirectal abscess with cultures that wound traveled along the rectum and then was somewhat posteriorly and towards the midline. We checked around the posterior midline of the anal canal and the anterior midline and saw no evidence of any fistula tract. That wound was quite deep 6-8 inches. We had packed it daily with Dakin's soaked gauze and kept her on initially vancomycin, Levaquin, and Flagyl. When the cultures came back with MRSA and E. coli, we changed her over to Bactrim along with cefepime and Flagyl. She has continued to improve each day and her white count has come down each day. She seemed to sleep quite a bit here in the hospital and we kept the visitors out of her room. She seemed to have poor insight into her condition, although yesterday she seemed to increase her activity. She has been eating well. She has had a couple of bowel movements and she for the 1st time made eye contact this morning and was cooperative with our exam. Dilaudid seemed to give her headaches, so we switched over to morphine that seemed to work well and she has also done well with hydrocodone. Her white count is down to 12.8 and the labs this morning are still pending as she is a little anemic with a hemoglobin of 10.3. Otherwise, she has been doing fine. Electronically Signed By: JOSH SÁNCHEZ MD 07/20/17 0808 PATIENT NAME: MAXI BYERS DISCHARGE SUMMARY DATE OF : [birth year] REPORT #: [id number] PHYSICIAN: JOSH SÁNCHEZ MD PCP: NO PRIMARY CARE PHYSICIAN REPORT IS CONFIDENTIAL AND NOT TO BE RELEASED WITHOUT AUTHORIZATION [facility] [address] [place] [id number] Signed DISCHARGE PLANS AND MEDICATIONS: Due to Maxi's progress, we are going to discharge her to home. She told me her father is going to help her purchase antibiotics. The E. coli and the MRSA are both have multiple sensitivities including Bactrim. Consequently, we will give her Bactrim DS two tablets p.o. b.i.d. for 7 days for a total of 12 days. We will continue Flagyl at 500 mg p.o. t.i.d. for another 7 days again for a total of 12 days. We are going to discontinue the packing and she can simply wash with soap and water and then cover her left buttocks with either dry gauze, a dry ABD, or dry peripad and placed underwear over that. We wanted to put the soap and water right up into the hole into her wound. She can follow a diet as tolerated. She can walk up and down stairs and shower and bathe as usual. We have asked her not obviously to go into any other public swimming pools, the [place] or the river. We will have her back in the office in a week or so for followup. She has expressed understanding and agrees with the above plan. Josh Sánchez MD ALB/MODL /[id number] cc: Josh Sánchez MD Copies: JOSH SÁNCHEZ MD ~ Electronically Signed By: JOSH SÁNCHEZ MD 07/20/17 0808 PATIENT NAME: MAXI BYERS DISCHARGE SUMMARY DATE OF : [birth year] REPORT #: [id number] PHYSICIAN: JOSH SÁNCHEZ MD PCP: NO PRIMARY CARE PHYSICIAN REPORT IS CONFIDENTIAL AND NOT TO BE RELEASED WITHOUT AUTHORIZATION
== END 2017-07-19 13:28 | disposition home or self-care (01) | DRG 854 ==
LOC: ED 20:44 → MS 20:45 → CCU 20:45 → ED 20:45 → MS 23:54 → CCU 23:54 → ED 23:54 → CCU 07-15 07:20 → MS 07-15 07:20 → CCU 07-15 07:20 → MS 07-17 17:15 → CCU 07-17 17:15 → MS 07-19 13:28 → CCU 07-19 13:28 → MS 07-19 13:28
PROVIDERS: ADMIT Colon & Rectal Surgery
PROC: 0D9P0ZZ Drainage of Rectum, Open Approach (ICD-10-PCS; principal; 2017-07-15 11:30)
DX: A41.02 Sepsis due to Methicillin resistant Staphylococcus aureus (principal); K61.1 Rectal abscess; N39.0 Urinary tract infection, site not specified; R65.20 Severe sepsis without septic shock; B96.20 Unspecified Escherichia coli [E. coli] as the cause of diseases classified elsewhere; F17.210 Nicotine dependence, cigarettes, uncomplicated; F15.10 Other stimulant abuse, uncomplicated; E87.6 Hypokalemia; R07.9 Chest pain, unspecified
CPT/HCPCS: 00902; 36415; 80048; 80053; 80069; 80202; 81001; 83605; 83690; 83735; 84100; 84484; 84703; 85025; 85651; 87040; 87070; 87075; 87077; 87088; 87186; 87205; 93005; 93010; 96374; 96375; 99285; J0330; J0692; J1170; J1644; J1885; J1956; J2060; J2370; J2405; J2550; J2704; J2765; J3010; J3370; J3475; J3480; J7030; J7040; J7050; J7060; J7120

== ENCOUNTER 2020-01-16 08:20 | Emergency (ER) | payer OTHER ==
[~2020-01-16] VITALS: Ht 167.6 cm; Wt 77.1 kg
[~2020-01-16 08:20] MED LIST changes: +BACTRIM DS TAB1 EACH PO; +FLAGYL500 MG PO; +NORCO 5-325 TA1 EACH PO
[2020-01-16] MEDS ORDERED: PENICILLIN V P500 MG PO (09:38)
== END 2020-01-16 10:15 | disposition home or self-care (01) ==
LOC: ED 08:20
PROC: 0C9WXZ0 Drainage of Upper Tooth, External Approach, Single (ICD-10-PCS; principal; 2020-01-16)
DX: K04.7 Periapical abscess without sinus (principal); F17.200 Nicotine dependence, unspecified, uncomplicated
CPT/HCPCS: 41800; 99282-25

== ENCOUNTER 2021-08-01 14:32 | Inpatient (IN) | payer OTHER ==
[~2021-08-01] VITALS: Ht 167.6 cm; Wt 96.6 kg
[~2021-08-01 14:32] MED LIST changes: +PENICILLIN V P500 MG PO
--- NOTE | 2021-08-01 15:44 | NUR ---
RT COLLECTED RAPID COVID 19, RSV, AND FLU SWAB PER DR REQUEST USING IN HOUSE LAB WITH NO COMPLICATIONS AT THIS TIME.
--- NOTE | 2021-08-01 17:55 | PR ---
[facility] [address] [place], [place] [address] Signed Progress Notes IP Datetime Report Generated by BOAZ: 08/01/2021 17:54 PROGRESS NOTES: [id number] Impression: Normal Progression of Labor; Reassuring Heart Rate Procedures: Artificial ROM Plan: Continue Present Management Informed Consent Obtain: Risks, Benefits and Alternatives Discussed Other Informed Consents: See below VITAL SIGNS: [id number] Vital Signs: Reviewed; Within Normal Limits EXAM: [id number] Dilatation: 3.0 Effacement: 50 Station: -2 Contractions: Rare MEMBRANES: [id number] Comments: Pt seen and examined. Long conversation again reviewed anticipated course of labor, risk of shoulder dystocia, ACOG guidelines for trial of labor in non-diabetic mom w/ EFW <5000g, indications for if needed, FHT, and history of prior vaginal delivery. Reviewed maneuvers employed should shoulder dystocia be encountered. Pt understands and agrees. AROM performed without difficulty for moderate amount clear fluid after ensuring vertex well applied. Mother and baby tolerated well. Anticipate . Epidural on demand FETUS A: [id number] FHR Baseline: 130 Variability: Moderate 6-25bpm Accelerations: 15X15 Decelerations: Late FHR Category: Category II Presentation: Vertex Comments on Fetus A: No evidence of metabolic acidosis FETUS B: [id number] Signing Physician: Bladimir Carranza DO Copies: ~ *Electronically Signed* 08/01/21 8533 BLADIMIR CARRANZA DO PATIENT NAME: CLAYTON BYERS WILL PROGRESS NOTE DATE OF : [birth year] PHYSICIAN: BLADIMIR CARRANZA DO [facility] #: [id number] REPORT IS CONFIDENTIAL AND NOT TO BE RELEASED WITHOUT AUTHORIZATION
--- NOTE | 2021-08-01 22:52 | PR ---
[facility] [address] [facility] [place], [place] [address] Signed Progress Notes IP Datetime Report Generated by CPN: 08/01/2021 22:52 PROGRESS NOTES: [id number] Impression: Normal Progression of Labor; Reassuring Heart Rate Procedures: Sterile Vag Exam Other Procedures: SVE per RN Plan: Continue Present Management Informed Consent Obtain: Vaginal Delivery Other Informed Consents: See below VITAL SIGNS: [id number] Vital Signs: Reviewed; Within Normal Limits EXAM: [id number] Dilatation: 4.0 Effacement: 70 Station: -2 Contractions: Rare MEMBRANES: [id number] Comments: Pt seen and evaluated. Comfortable w/ epidural. FHT reassuring. CTXs irregular. Consider IUPC / pitocin augmentation at next visit if unchanged. FETUS A: [id number] FHR Baseline: 130 Variability: Moderate 6-25bpm Accelerations: 15X15 Decelerations: Late FHR Category: Category II Presentation: Vertex Comments on Fetus A: No evidence of metabolic acidosis FETUS B: [id number] Signing Physician: Bladimir Carranza DO Copies: ~ *Electronically Signed* 08/01/21 8333 BLADIMIR CARRANZA DO PATIENT NAME: BYERS,CLAYTON WILL PROGRESS NOTE DATE OF : [birth year] PHYSICIAN: BLADIMIR CARRANZA DO RPT #: [id number] REPORT IS CONFIDENTIAL AND NOT TO BE RELEASED WITHOUT AUTHORIZATION
--- NOTE | 2021-08-02 03:33 | PR ---
[facility] [address] [place], [place] [address] Signed Progress Notes IP Datetime Report Generated by BOAZ: 08/02/2021 03:33 PROGRESS NOTES: [id number] Impression: Normal Progression of Labor; Reassuring Heart Rate Procedures: Intrauterine Pressure Catheter; Sterile Vag Exam Other Procedures: SVE per RN Plan: Continue Present Management Other Plans: Consider pitocin augmentation Informed Consent Obtain: Vaginal Delivery Other Informed Consents: See below VITAL SIGNS: [id number] Vital Signs: Reviewed; Within Normal Limits EXAM: [id number] Dilatation: 4.0 Effacement: 70 Station: -2 Contractions: Rare MEMBRANES: [id number] Comments: Pt seen and examined. Comfortable w/ epidural. Brief vasovagal episode w/ cervical check by RN resolved w/ dose of ephedrine, maternal repositioning, and IV fluids. On exam, cervix 4/80/-2 soft anterior. Recommend IUPC to better evaluate contractions and to monitor closer if pitocin augmentation indicated. Pt understands and agrees. IUPC placed w/out difficulty. Mother and baby tolerated well. FETUS A: [id number] FHR Baseline: 130 Variability: Moderate 6-25bpm Accelerations: 15X15 Decelerations: Late FHR Category: Category II Presentation: Vertex Comments on Fetus A: No evidence of metabolic acidosis FETUS B: [id number] Signing Physician: Bladimir Carranza DO Copies: ~ *Electronically Signed* 08/02/21 0333 BLADIMIR CARRANZA DO PATIENT NAME: CLAYTON BYERS WILL PROGRESS NOTE DATE OF : [birth year] PHYSICIAN: BLADIMIR CARRANZA DO [facility] #: [id number] REPORT IS CONFIDENTIAL AND NOT TO BE RELEASED WITHOUT AUTHORIZATION
--- NOTE | 2021-08-02 07:21 | PR ---
[facility] [address] [place], [place] [address] Signed Progress Notes IP Datetime Report Generated by BOAZ: 08/02/2021 07:21 PROGRESS NOTES: [id number] Impression: Normal Progression of Labor; Reassuring Heart Rate Procedures: Sterile Vag Exam Other Procedures: Reviewed adequate pelvis and EFW Plan: Anticipate Vaginal Delivery Other Plans: Consider pitocin augmentation Informed Consent Obtain: Vaginal Delivery; Risks, Benefits and Alternatives Discussed Other Informed Consents: See below VITAL SIGNS: [id number] Vital Signs: Reviewed; Within Normal Limits EXAM: [id number] Dilatation: 9.5 Effacement: 80 Station: 1 Contractions: Rare MEMBRANES: [id number] Comments: Pt seen and examined. Doing well. Comfortable w/ contractions. Pt complete +1 station and pt starting to feel some pressure. FTH reassuring. Careful pelvic exam confirms adequate pelvis. Again reviewed EFW, adequate pelvis, and risk of shoulder dystocial. Reviewed possible sequeale of shoulder dystocia, maneuvers employed should a dystocia be encountered, and the anticipated course of delivery. Pt declines primary C/S after reviewing all risks factors, above information, ACOG guidelines, and my recommendation for trial of vaginal delivery. Will proceed with pushing; anticipate soon FETUS A: [id number] FHR Baseline: 130 Variability: Moderate 6-25bpm Accelerations: 15X15 Decelerations: Late FHR Category: Category II Presentation: Vertex Comments on Fetus A: No evidence of metabolic acidosis FETUS B: [id number] Signing Physician: Bladimir Carranza DO Copies: *Electronically Signed* 08/02/21720 BLADIMIR CARRANZA DO PATIENT NAME: CLAYTON BYERS PROGRESS NOTE DATE OF : [birth year] PHYSICIAN: BLADIMIR CARRANZA DO RPT #: [id number] REPORT IS CONFIDENTIAL AND NOT TO BE RELEASED WITHOUT AUTHORIZATION [address] [place] [address] Signed ~ *Electronically Signed* 08/02/21720 CARRANZA,BLADIMIR Dent DO PATIENT NAME: CLAYTON BYERS PROGRESS NOTE DATE OF : [birth year] PHYSICIAN: BLADIMIR CARRANZA DO RPT #: [id number] REPORT IS CONFIDENTIAL AND NOT TO BE RELEASED WITHOUT AUTHORIZATION
--- NOTE | 2021-08-03 10:59 | PR ---
[facility] [address] [place], [place] [address] Signed PP Progress Notes Datetime Report Generated by CPN: 08/03/2021 10:59 SUBJECTIVE: [id number] Pain: Within Normal Limits Nausea/Vomiting: Denies Flatus: Yes Bowel Movement: No Vital Signs: [id number] Vital Signs: Reviewed; Within Normal Limits EXAM: Ongoing Cardiovascular: Normal Respiratory: Normal Abdomen/Uterus: Normal Lochia: Normal Vulva/Perineum: Not Done Breasts: Not Done CVA Tenderness: Normal Extremities: Normal Incision: Not Applicable Progress: Normal Exam Comments: Fundus firm U-2 nontender IMPRESSION/PLAN/PROCEDURES: [id number] Impression: Normal Progression Plan: Discharge Procedures: Rhogam Progress Notes: Pt seen and examined. Doing well. Ambulating, voiding, and tolerating full diet. Pain and lochia minimal. well. No fevers/chills or other concerns. Desires d/c home. Mom Rh neg and pt Rh pos. Rhogam prior to discharge. Planning Mirena IUD. No other questions or concerns. Reviewed d/c instructions in detail Signing Physician: Bladimir Carranza DO Copies: ~ *Electronically Signed* 08/03/21 0152 BLADIMIR CARRANZA DO PATIENT NAME: CLAYTON BYERS PROGRESS NOTE DATE OF : [birth year] PHYSICIAN: BLADMIIR CARRANZA DO RPT #: [id number] REPORT IS CONFIDENTIAL AND NOT TO BE RELEASED WITHOUT AUTHORIZATION
== END 2021-08-03 13:10 | disposition home or self-care (01) | DRG 807 ==
LOC: FBCO 14:32 → FBC 15:34
PROVIDERS: ADMIT Obstetrics & Gynecology; ATTEND Obstetrics & Gynecology
PROC: 10E0XZZ Delivery of Products of Conception, External Approach (ICD-10-PCS; principal; 2021-08-01)
PROC: 0KQM0ZZ Repair Perineum Muscle, Open Approach (ICD-10-PCS; 2021-08-01)
PROC: 10907ZC Drainage of Amniotic Fluid, Therapeutic from Products of Conception, Via Natural or Artificial Opening (ICD-10-PCS; 2021-08-01)
PROC: 3E0R3BZ Introduction of Anesthetic Agent into Spinal Canal, Percutaneous Approach (ICD-10-PCS; 2021-08-01)
PROC: 3E0R33Z Introduction of Anti-inflammatory into Spinal Canal, Percutaneous Approach (ICD-10-PCS; 2021-08-01)
PROC: 10H07YZ Insertion of Other Device into Products of Conception, Via Natural or Artificial Opening (ICD-10-PCS; 2021-08-01)
DX: O70.1 Second degree perineal laceration during delivery (principal); Z37.0 Single live birth; Z3A.38 38 weeks gestation of pregnancy
CPT/HCPCS: 36415; 83030; 85027; 86850; 86870; 86900; 86901; 87502; A9270; C9803; J2590; J2790; J2795; J3010; J7121; U0003

== ENCOUNTER 2023-01-25 20:08 | Emergency (ER) | payer OTHER ==
[~2023-01-25] VITALS: Ht 167.6 cm; Wt 72.8 kg
[2023-01-25 22:24] VITALS: BP 110/78
== END 2023-01-25 22:26 | disposition home or self-care (01) ==
LOC: ED 20:08
DX: T83.32XA Displacement of intrauterine contraceptive device, initial encounter (principal); Y76.8 Miscellaneous obstetric and gynecological devices associated with adverse incidents, not elsewhere classified; F17.200 Nicotine dependence, unspecified, uncomplicated; Z79.899 Other long term (current) drug therapy
CPT/HCPCS: 74018; 84703